=== PATIENT | female | born 1980 | race Caucasian/White ===

== ENCOUNTER 2024-02-28 16:27 | Inpatient (IN) | payer OTHER ==
[~2024-02-28] VITALS: Ht 157.5 cm; Wt 54.0 kg
[2024-02-28 17:14] VITALS: BP 126/56; PULSE 102; RESP 18; TEMP 98; O2SAT 98
[2024-02-28 17:36] VITALS: O2SAT 99
[2024-02-28 18:15] LABS: BASOPHILS # (AUTO) 0.1 K/uL (0.00-0.22); BASOPHILS % (AUTO) 1.5 % (0.0-2.0); EOSINOPHILS # (AUTO) 0.4 K/uL (0-0.4); EOSINOPHILS % (AUTO) 4.6 % (0.0-4.0); LYMPHOCYTES # (AUTO) 1.8 K/uL (2.5-16.5); LYMPHOCYTES % (AUTO) 23.6 % (20.5-51.1); MEAN CORPUSCULAR HEMOGLOBIN 15 pg (27-31); MEAN CORPUSCULAR HGB CONC 27 g/dL (33-37); MONOCYTES # (AUTO) 0.8 K/uL (0.8-1.0); NEUTROPHILS # (AUTO) 4.7 K/uL (1.8-7.7); NEUTROPHILS % (AUTO) 60.3 % (42.2-75.2); PLATELET COUNT (AUTO) 270 K/uL (140-450); RED BLOOD CELL COUNT(AUTO) 3.04 MIL/uL (4.20-5.40); RED CELL DISTRIBUTION WIDTH 19.6 % (11.6-13.7); WHITE BLOOD COUNT (AUTO) 7.8 K/uL (4.8-10.8)
[2024-02-28 18:20] LABS: HEMOGLOBIN 4.6 g/dL (12.0-16.0)
[2024-02-28 18:21] LABS: HEMATOCRIT 17.3 % (36-48)
[2024-02-28 18:22] LABS: ANION GAP 6.9 (8-16); CALCIUM 8.8 mg/dL (8.5-10.1); CARBON DIOXIDE 34.2 mmol/L (21-32); CREATININE 0.7 mg/dL (0.6-1.3); POTASSIUM 3.1 mmol/L (3.5-5.1)
[2024-02-28 19:19] VITALS: O2SAT 99
[2024-02-28] MEDS: POTASSIUM CHLORIDE 10 MEQ TABER PO ONE (20:39)
[2024-02-28] MEDS: LORazepam 1 MG TAB PO ONE (20:53)
[2024-02-28] MEDS ORDERED: FLUO10CA21 PO (21:00)
[2024-02-28] MEDS ORDERED: LAMO25TA PO (21:00)
[2024-02-28] MEDS ORDERED: OLAN2.5T1 PO (21:00)
[2024-02-28] MEDS ORDERED: TRAZ-343 PO (21:00)
[2024-02-28 21:30] VITALS: PULSE 87; RESP 18; O2SAT 98
[2024-02-28] MEDS ORDERED: ACETAMINOPHEN 325 MG TAB PO PRN (21:50)
[2024-02-28] MEDS ORDERED: ONDANSETRON 4 MG/2 ML VIAL IVP PRN (21:50)
[2024-02-29] VITALS: BP 119/67; PULSE 96; RESP 18; TEMP 98.7; O2SAT 98
[2024-02-29] MEDS: MORPHINE SULFATE 2 MG/ML SYR IVP PRN (00:58)
[2024-02-29 04:00] VITALS: BP 110/59; PULSE 91; RESP 18; TEMP 98.2; O2SAT 98
[2024-02-29 07:35] LABS: HEMATOCRIT 26.9 % (36-48); HEMOGLOBIN 8.3 g/dL (12.0-16.0); MEAN CORPUSCULAR HEMOGLOBIN 21 pg (27-31); MEAN CORPUSCULAR HGB CONC 31 g/dL (33-37); PLATELET COUNT (AUTO) 209 K/uL (140-450); RED CELL DISTRIBUTION WIDTH 33.7 % (11.6-13.7); WHITE BLOOD COUNT (AUTO) 8.4 K/uL (4.8-10.8)
[2024-02-29 07:46] LABS: ANION GAP 8.7 (8-16); CALCIUM 8.8 mg/dL (8.5-10.1); CARBON DIOXIDE 30.4 mmol/L (21-32); CREATININE 0.7 mg/dL (0.6-1.3); POTASSIUM 4.1 mmol/L (3.5-5.1)
[2024-02-29 07:49] LABS: EOSINOPHILS % (MANUAL) 11 % (0-4); LYMPHOCYTES % (MANUAL) 21 % (20-46); MONOCYTES % (MANUAL) 4 % (5-12)
[2024-02-29 07:50] LABS: ANISOCYTOSIS 1+; HYPOCHROMASIA SLIGHT; OVALOCYTES 1+; PLATELET ESTIMATE ADEQUATE; POIKILOCYTOSIS 1+; POLYCHROMASIA 1+
[2024-02-29 08:00] VITALS: BP 105/59; PULSE 74; RESP 17; RESP 7; TEMP 97.4; O2SAT 98
[2024-02-29] MEDS ORDERED: MEDS-TO-BEDS MC SCH (21:00)
== END 2024-02-29 14:40 | disposition home or self-care (01) | DRG 663 ==
LOC: MED 16:27 → MMU 20:30 → MTU 21:12
PROVIDERS: ADMIT Hospitalist; ATTEND Hospitalist
PROC: 30233N1 Transfusion of Nonautologous Red Blood Cells into Peripheral Vein, Percutaneous Approach (ICD-10-PCS; principal; 2024-02-28)
DX: D62 Acute posthemorrhagic anemia (principal); E44.1 Mild protein-calorie malnutrition; N93.8 Other specified abnormal uterine and vaginal bleeding; E87.6 Hypokalemia; Z68.21 Body mass index [BMI] 21.0-21.9, adult
CPT/HCPCS: 36415; 36430; 76856; 80048; 83735; 84443; 85025; 86886; 86900; 86901; 86920; 87081; 99291; J2270; P9016